=== PATIENT | male | born 1950 | race Caucasian/White ===

== ENCOUNTER 2017-04-12 22:03 | Emergency (ER) | payer OTHER ==
[~2017-04-12] VITALS: Ht 185.4 cm; Wt 92.0 kg
[2017-04-12 22:03] VITALS: BP 132/78; PULSE 83; RESP 16; TEMP 98.3; O2SAT 98
[~2017-04-12 22:03] MED LIST: AMBI5TAB PO; BLOOKIT XX; FLUO60TA OR; GABA300C3 PO; GLUCTAB OR; LISI10; LORA0.5T PO; NAPR250UDC PO; PRAZ5 PO; ROPI2TAB23 PO; TRAM50 PO; ZOCO40TA PO
[2017-04-12] MEDS ORDERED: AMBI10TA PO (22:46)
[2017-04-12] MEDS ORDERED: GABA300C5 PO (22:46)
[2017-04-12] MEDS ORDERED: GLIP10TA6 PO (22:46)
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
[2017-04-12] MEDS ORDERED: ACETAMINOPHEN/HYDROcodone 325 MG/5 MG TAB PO ONE (23:00)
--- NOTE | 2017-04-12 23:43 | RADRPT ---
EXAM DATE/TIME: 04/12/2017 23:19 [facility] COMPARISON: No previous studies available for comparison. INDICATIONS : Fell hitting left side of head. RADIATION DOSE: 41.51 CTDIvol (mGy) MEDICAL HISTORY : Cardiovascular disease. Diabetes mellitus type 2. SURGICAL HISTORY : Pacemaker. ENCOUNTER: Initial ACUITY: 1 day PAIN SCALE: 5/10 LOCATION: Left cranial TECHNIQUE: Multiple contiguous axial images were obtained of the head. Using automated exposure control and adj ustment of the mA and/or kV according to patient size, radiation dose was kept as low as reasonably a chievable to obtain optimal diagnostic quality images. DICOM format image data is available electro nically for review and comparison. FINDINGS: CEREBRUM: The ventricles are normal for age. No evidence of midline shift, mass lesion, hemorrhage or acute in farction. No extra-axial fluid collections are seen. POSTERIOR FOSSA: The cerebellum and brainstem are intact. The 4th ventricle is midline. The cerebellopontine angle i s unremarkable. EXTRACRANIAL: The visualized portion of the orbits is intact. Left-sided scalp laceration. SKULL: The calvaria is intact. No evidence of skull fracture. CONCLUSION: 1. No acute intracranial abnormalities. Left-sided scalp laceration. Rey Vasquez MD on April 12, 2017 at 23:40 Board Certified Radiologist. This report was verified electronically.
--- NOTE | 2017-04-12 23:52 | RADRPT ---
EXAM DATE/TIME: 04/12/2017 23:19 [facility] COMPARISON: No previous studies available for comparison. INDICATIONS : Fell hitting left side of face. RADIATION DOSE: 45.87 CTDIvol (mGy) MEDICAL HISTORY : Cardiovascular disease. Diabetes mellitus type 2. SURGICAL HISTORY : Pacemaker. ENCOUNTER: Initial ACUITY: 1 day PAIN SCORE: 5/10 LOCATION: Left facial TECHNIQUE: Volumetric scanning of the facial bones was performed. Using automated exposure control and adjustme nt of the mA and/or kV according to patient size, radiation dose was kept as low as reasonably achiev able to obtain optimal diagnostic quality images. DICOM format image data is available electronicPryv y for review and comparison. FINDINGS: ORBITS: The orbital and infraorbital osseous structures are intact. The retroconal structures have a normal configuration. No radiopaque foreign bodies are seen. NASAL BONE: The nasal bone and maxillary spine are intact ZYGOMATIC ARCHES: Symmetric without evidence of fracture. SINUSES: The maxillary, ethmoid and frontal sinuses are intact. No air-fluid levels seen. NASAL CAVITY: The nasal septum is intact and midline. The lacrimal ducts are intact. SOFT TISSUES: No radiopaque foreign bodies seen. No soft-tissue swelling is seen. INTRACRANIAL: No intracranial air seen. CRIBIFORM PLATE: Grossly intact. CONCLUSION: 1. No acute facial bone fractures. Rey Vasquez MD on April 12, 2017 at 23:42 Board Certified Radiologist. This report was verified electronically.
--- NOTE | 2017-04-13 00:15 | PD ---
Data Data Last Documented VS Vital Signs Date Time Temp Pulse Resp B/P (MAP) Pulse Ox O2 Delivery O2 Flow Rate FiO2 04/13/17 00:25 04/12/17 22:41 99 Room Air 04/12/17 22:03 98.[address] Brain W/O Iv Contrast(Rout) (04/12/17 22:38) Ct Facial Bones W/O Iv Cont (04/12/17 22:38) Acetamin-Hydrocod 325-5 Mg ([place] 5-325 (04/12/17 23:00) [facility] Medical Record Reviewed: Yes Supervised Visit with NITA: No Interpretation(s) Last Impressions Maxillofacial CT 04/12/172237 Signed Impressions: Service Date/Time: Wednesday, April 12, 2017 23:19 - CONCLUSION: 1. No acute facial bone fractures. Rey Vasquez MD Head CT 04/12/172237 Signed Impressions: Service Date/Time: Wednesday, April 12, 2017 23:19 - CONCLUSION: 1. No acute intracranial abnormalities. Left-sided scalp laceration. Rey Vasquez MD Narrative Course During the course of the patients emergency department visit, the patients history, examination, and differential diagnosis were reviewed with the patient. The patient had IV access obtained and blood work sent for analysis. The patient's case was checked out to me by Geoff, the physician metal moulder's assistant, at the conclusion of his shift. Please see his complete history and physical. The patient has pending CT scans. The patient was initially provided hydrocodone for pain. Radiology studies were reviewed and remarkable for a CT scan of the head that shows no acute intracranial abnormality, left sided scalp laceration. CT scan of the facial bones shows no acute facial bone fracture. The patient's scalp wound is obscured related to dry blood. The patient's wound will be cleaned and reassessed for any need of rod. After the wound was cleaned, the patient had no evidence of significant scalp laceration requiring further management. The patient is resting comfortably and feels better, is alert and in no distress. The patients results and examination findings were discussed with the patient. The repeat examination is unremarkable and benign. The history, exam, diagnostic testing, and current condition do not suggest any significant pathology to warrant further testing, continued ED treatment, admission, or surgical evaluation at this point. The vital signs have been stable. The patient does not have uncontrollable pain, intractable vomiting, or other significant symptoms. The patient's condition is stable and appropriate for discharge. The patient will pursue further outpatient evaluation with a primary care physician or other designated or consulting physician as indicated in the discharge instructions. The patient expressed understanding and was agreeable with this plan. Diagnosis Primary Impression: Head injury Qualified Codes: S09.90XA - Unspecified injury of head, initial encounter Referrals: Primary Care Physician 2 days Patient Instructions: General Instructions, Head Injury (ED) Disposition: 01 DISCHARGE HOME Condition: Stable Annia Torres MD Apr 13, 2017 00:15
== END 2017-04-13 00:31 | disposition home or self-care (01) ==
LOC: NEPC 22:03
DX: S09.90XA Unspecified injury of head, initial encounter (principal); S00.01XA Abrasion of scalp, initial encounter; S50.812A Abrasion of left forearm, initial encounter; R11.0 Nausea; E11.9 Type 2 diabetes mellitus without complications; Z72.0 Tobacco use; Z86.59 Personal history of other mental and behavioral disorders; Z79.84 Long term (current) use of oral hypoglycemic drugs; W01.198A Fall on same level from slipping, tripping and stumbling with subsequent striking against other object, initial encounter; Y92.89 Other specified places as the place of occurrence of the external cause
CPT/HCPCS: 70450; 70486; 99285

== ENCOUNTER 2017-11-09 13:08 | Observation (INO) | payer OTHER ==
[~2017-11-09] VITALS: Ht 180.3 cm; Wt 90.5 kg
[~2017-11-09 13:08] MED LIST changes: +AMBI10TA PO; -AMBI5TAB PO; -BLOOKIT XX; -FLUO60TA OR; -GABA300C3 PO; +GABA300C5 PO; +GLIP10TA6 PO; -GLUCTAB OR; -LISI10; -LORA0.5T PO; -NAPR250UDC PO; -PRAZ5 PO; -ROPI2TAB23 PO; -TRAM50 PO; -ZOCO40TA PO
[2017-11-09 13:31] VITALS: BP 134/66; PULSE 84; RESP 19; TEMP 98.3; O2SAT 96
[2017-11-09 13:47] VITALS: BP 147/70; PULSE 94; RESP 18; O2SAT 96
--- NOTE | 2017-11-09 13:52 | PD ---
HPI Chief Complaint: Pain: Acute or Chronic Time Seen by Provider: 13:42 Travel History International Travel<30 days: No Contact w/Intl Traveler<30days: No Traveled to known affect area: No History of Present Illness HPI This is a 67-year-old male with history of diabetes who presents for evaluation of chest pain. Symptoms started 2 days ago when he was lying down in bed. He reports that he has a sharp right-sided chest pain which lasted for about 5 minutes. Since then he has had persistent sore type of chest pain with no obvious aggravating or alleviating factors. He denies any shortness of breath, cough or congestion, nausea or vomiting, diaphoresis, abdominal pain, weakness, recent travel recent surgery, lower extremity edema. He reports a history of diabetes, pacemaker placement 15 years ago. Per chart review he had a normal cardiac catheterization [facility] in 2009. He has not had any stress testing since then. His primary care physician is at the [facility]. He has no other complaints. 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) Social History Alcohol Use: Yes Tobacco Use: No Substance Use: No Allergies-Medications (Allergen,Severity, Reaction): Coded Allergies: No Known Allergies (Verified Adverse Reaction, Unknown, 11/09/17) Reported Meds & Prescriptions Reported Meds & Active Scripts Active Reported Glipizide 10 Mg Tab 10 Mg PO DAILY Take 30 minutes before a meal Gabapentin 300 Mg Cap 300 Mg PO TID Ambien (Zolpidem Tartrate) 10 Mg Tab 10 Mg PO HS PRN Review of Systems Except as stated in HPI: all other systems reviewed are Neg Physical Exam Narrative GENERAL: Well-developed well-nourished male in no acute distress SKIN: Warm and dry. HEAD: Atraumatic. Normocephalic. EYES: Pupils equal and round. No scleral icterus. No injection or drainage. ENT: No nasal bleeding or discharge. Mucous membranes pink and moist. NECK: Trachea midline. No JVD. CARDIOVASCULAR: Regular rate and rhythm. No murmur appreciated. RESPIRATORY: No accessory muscle use. Clear to auscultation. Breath sounds equal bilaterally. GASTROINTESTINAL: Abdomen soft, non-tender, nondistended. Hepatic and splenic margins not palpable. MUSCULOSKELETAL: No obvious deformities. No clubbing. No cyanosis. No edema. Pacemaker noted left upper chest. NEUROLOGICAL: Awake and alert. No obvious cranial nerve deficits. Motor grossly within normal limits. Normal speech. PSYCHIATRIC: Appropriate mood and affect; insight and judgment normal. Data Data Last Documented VS Vital Signs Date Time Temp Pulse Resp B/P (MAP) Pulse Ox O2 Delivery O2 Flow Rate FiO2 11/09/17 13:47 94 18 147/70 (95) 96 Room Air 11/09/17 13:31 98.3 Orders Orders Electrocardiogram (11/09/17 13:47) Basic Metabolic Panel (Bmp) (11/09/17 13:47) Ckmb (Isoenzyme) Profile (11/09/17 13:47) Complete Blood Count With Diff (11/09/17 13:47) Magnesium (Mg) (11/09/17 13:47) Prothrombin Time / Inr (Pt) (11/09/17 13:47) Act Partial Throm Time (Ptt) (11/09/17 13:47) Troponin I (11/09/17 13:47) Ecg Monitoring (11/09/17 13:47) Bilateral Bp Monitoring (11/09/17 13:47) Iv Access Insert/Monitor (11/09/17 13:47) Oximetry (11/09/17 13:47) Oxygen Administration (11/09/17 13:47) Aspirin Chew (Aspirin Chew) (11/09/17 14:00) Sodium Chloride 0.9% Flush (Ns Flush) (11/09/17 14:00) Chest, Pa & Lat (11/09/17 13:47) Sodium Chlor 0.9% 1000 Ml Inj (Ns 1000 M (11/09/17 14:20) Insulin Human Regular Inj (Novolin R Inj (11/09/17 14:30) Admit Order (Ed Use Only) (11/09/17 14:33) Labs Laboratory Tests Test 11/09/17 13:35 White Blood Count 6.8 TH/MM3 Red Blood Count 4.57 MIL/MM3 Hemoglobin 14.6 GM/DL Hematocrit 43.3 % Mean Corpuscular Volume 94.7 FL Mean Corpuscular Hemoglobin 32.0 PG Mean Corpuscular Hemoglobin Concent 33.8 % Red Cell Distribution Width 13.6 % Platelet Count 168 TH/MM3 Mean Platelet Volume 9.4 FL Neutrophils (%) (Auto) 72.6 % Lymphocytes (%) (Auto) 17.4 % Monocytes (%) (Auto) 5.9 % Eosinophils (%) (Auto) 3.5 % Basophils (%) (Auto) 0.6 % Neutrophils # (Auto) 4.9 TH/MM3 Lymphocytes # (Auto) 1.2 TH/MM3 Monocytes # (Auto) 0.4 TH/MM3 Eosinophils # (Auto) 0.2 TH/MM3 Basophils # (Auto) 0.0 TH/MM3 CBC Comment DIFF FINAL Differential Comment Prothrombin Time 10.4 SEC Prothromb Time International Ratio 1.0 RATIO Activated Partial Thromboplast Time 25.9 SEC Blood Urea Nitrogen 21 MG/DL Creatinine 1.42 MG/DL Random Glucose 357 MG/DL Calcium Level 8.5 MG/DL Magnesium Level 2.0 MG/DL Sodium Level 140 MEQ/L Potassium Level 4.4 MEQ/L Chloride Level 103 MEQ/L Carbon Dioxide Level 29.9 MEQ/L Anion Gap 7 MEQ/L Estimat Glomerular Filtration Rate 49 ML/MIN Total Creatine Kinase 74 U/L Troponin I LESS THAN 0.02 NG/ML [facility] Medical Decision Making Medical Screen Exam Complete: Yes Emergency Medical Condition: Yes Medical Record Reviewed: Yes Differential Diagnosis Acute coronary syndrome, angina, costochondritis, pericarditis, myocarditis, pneumothorax, hemothorax, pneumonia, aortic dissection, pulmonary embolism Narrative Course The patient was placed on ECG monitoring pulse oximetry. A 12-lead EKG was obtained revealing electronically paced rhythm. Lab work, chest x-ray have been ordered. The patient will be given a full dose aspirin. CBC is unremarkable. BMP reveals a GFR 49, glucose of 357, 1 L IV fluid/5 unit insulin bolus will be initiated. Initial set of cardiac enzymes are negative. Chest x-ray is normal. At this point time the plan would be to admit the patient into the chest pain center for serial cardiac enzymes and rule out purposes. He is agreeable. Diagnosis Primary Impression: Atypical chest pain Admitting Information Admitting Physician Requests: Jah Jolley Nov 09, 2017 13:52
[2017-11-09] MEDS ORDERED: ASPIRIN 81 MG CHEW TAB PO ONE (14:00)
[2017-11-09] MEDS ORDERED: SODIUM CHLORIDE 0.9% FLUSH 10 ML FLUSH IVF PRN (14:00)
[2017-11-09 14:03] LABS: AUTOMATED NEUTROPHIL # 4.9 TH/MM3 (1.8-7.7); BASOPHIL % 0.6 % (0.0-2.0); EOSINOPHIL # 0.2 TH/MM3 (0-0.4); EOSINOPHIL % 3.5 % (0.0-4.0); HEMATOCRIT 43.3 % (39.0-51.0); HEMOGLOBIN 14.6 GM/DL (13.0-17.0); LYMPH % 17.4 % (9.0-44.0); LYMPHOCYTE # 1.2 TH/MM3 (1.0-4.8); MEAN CELL VOLUME 94.7 FL (80.0-100.0); MEAN CORPUSCULAR HGB CONC 33.8 % (32.0-36.0); MEAN PLATELET VOLUME 9.4 FL (7.0-11.0); MONO % 5.9 % (0.0-8.0); MONOCYTE # 0.4 TH/MM3 (0-0.9); NEUT % 72.6 % (16.0-70.0); PLATELET COUNT 168 TH/MM3 (150-450); RED BLOOD COUNT 4.57 MIL/MM3 (4.50-5.90); RED CELL DISTRIBUTION WIDTH 13.6 % (11.6-17.2); WHITE BLOOD COUNT 6.8 TH/MM3 (4.0-11.0)
[2017-11-09 14:11] LABS: PROTHROMBIN TIME - PATIENT 10.4 SEC (9.8-11.6)
--- NOTE | 2017-11-09 14:18 | RADRPT ---
EXAM DATE/TIME: 11/09/2017 14:05 [facility] COMPARISON: No previous studies available for comparison. INDICATIONS : Chest pain. MEDICAL HISTORY : Cardiovascular disease. Diabetes mellitus type II. SURGICAL HISTORY : Pacemaker. ENCOUNTER: Initial ACUITY: 2 days PAIN SCORE: 8/10 LOCATION: Left chest FINDINGS: PA and lateral views of the chest demonstrate the lungs to be symmetrically aerated without evidence of mass, infiltrate or effusion. The cardiomediastinal contours are unremarkable. Osseous structure s are intact. CONCLUSION: Normal examination. Left subclavian bipolar pacer in good position Stephen Cantu MD on November 09, 2017 at 14:15 Board Certified Radiologist. This report was verified electronically.
[2017-11-09 14:19] LABS: BICARBONATE 29.9 MEQ/L (21.0-32.0); BLOOD UREA NITROGEN 21 MG/DL (7-18); CALCIUM 8.5 MG/DL (8.5-10.1); CHLORIDE 103 MEQ/L (98-107); CREATININE 1.42 MG/DL (0.60-1.30); GLOMERULAR FILTRATION RATE 49 ML/MIN (>89); GLUCOSE,RANDOM 357 MG/DL (74-106); SODIUM (NA) 140 MEQ/L (136-145)
[2017-11-09] MEDS ORDERED: SODIUM CHLOR 0.9% 1000 ML INJ 1,000 ML IV SCH (14:20)
[2017-11-09 14:24] LABS: TROPONIN I LESS THAN 0.02 NG/ML (0.02-0.05)
[2017-11-09] MEDS ORDERED: INSULIN HUMAN REGULAR 1,000 UNITS/10 ML VIAL IV PUSH ONE (14:30)
[2017-11-09] MEDS ORDERED: MELA5 PO (15:19)
[2017-11-09] MEDS ORDERED: BUPR300T PO (15:19)
[2017-11-09] MEDS ORDERED: VIAG50TA PO (15:19)
[2017-11-09] MEDS ORDERED: TERA2CAP3 PO (15:19)
[2017-11-09] MEDS ORDERED: DULO1CAP3 PO (15:19)
[2017-11-09] MEDS ORDERED: VENTAER INH (15:19)
--- NOTE | 2017-11-09 15:55 | PD.AMA ---
Against Medical Advice Note Diagnosis: (1) Chest pain (2) Renal insufficiency (3) DM (diabetes mellitus) Discharge Disposition: Against Medical Advice AMA Statement Patient Norbert Preston has decided to leave the hospital against medical advice. This patient has the capacity to refuse care and understands the risks of leaving, including permanent disability and/or , and has had an opportunity to ask questions about his condition. The patient has been informed that he may return for care at any time, and follow up has been arranged/ advised. Etienne Lin Nov 09, 2017 15:55
--- NOTE | 2017-11-09 16:08 | HHI.HP ---
HPI Primary Care Physician Unknown Chief Complaint Chest pain History of Present Illness This is a 67-year-old male that presents to ED via private vehicle after being evaluated at the [facility] to be further evaluated for chest discomfort. States that he developed discomfort in the right side of his chest 2 nights ago while going to bed. It was a stabbing discomfort that lasted about 5 minutes but since then that has been a soreness to the same area. Pain level 2 out of 10. Nothing really seems to worsen or improve it. Has no associated shortness of breath, nausea, or diaphoresis. Patient states he does not want to stay. Patient states "if I thought it was my heart, I would stay." Upon reviewing records patient had a stress test at this facility 2009 that was abnormal at the heart catheterization performed by Dr. Kay that revealed normal coronary arteries. He also has a pacemaker that was placed 1998 in [facility] and replaced in 2008 through the [facility]. He follows a acute specialist at the [facility] on an annual basis. Review of Systems Diabetes, hyperlipidemia, pacemaker, neuropathy. Denies hypertension and CAD. Past Family Social History Allergies: Coded Allergies: No Known Allergies (Verified Adverse Reaction, Unknown, 11/09/17) Past Medical History Diabetes, hyperlipidemia, pacemaker, neuropathy. Denies hypertension and CAD. Past Surgical History Cardiac catheterization without intervention in 2009. Pacemaker. Reported Medications Reported Meds & Active Scripts Active Reported Bupropion HCl ER 24 HR (Bupropion HCl) 300 Mg Tab 300 Mg PO DAILY Duloxetine DR (Duloxetine HCl) 60 Mg Capdr 60 Mg PO DAILY Viagra (Sildenafil Citrate) 50 Mg Tab 50 Mg PO DAILY PRN Terazosin (Terazosin HCl) 2 Mg Cap 2 Mg PO HS Glipizide 10 Mg Tab 10 Mg PO DAILY Take 30 minutes before a meal Gabapentin 300 Mg Cap 300 Mg PO TID Ambien (Zolpidem Tartrate) 10 Mg Tab 10 Mg PO HS PRN Active Ordered Medications Current Medications Medications (Trade) Dose Ordered Sig/Renetta Route Start Time Stop Time Status Last Admin (NS Flush) 2 ml UNSCH PRN IVF 11/09/17 14:00 (Wellbutrin Sr) 150 mg BID PO 11/09/17 21:00 (Cymbalta Dr) 60 mg DAILY PO 11/10/17 09:00 (Neurontin) 300 mg TID PO 11/09/17 18:00 (Glucotrol) 10 mg DAILY PO 11/10/17 09:00 (Hytrin) 2 mg HS PO 11/09/17 21:00 (Ambien) 10 mg HS PRN PO 11/09/17 21:00 Family History Denies family history of CAD. Social History Quit smoking 8 years ago but prior that he smoked on and off for 40 years but will not do any more further detail to quantity. Has occasional alcohol. Denies illicit drug use. Physical Exam Vital Signs Vital Signs Date Time Temp Pulse Resp B/P (MAP) Pulse Ox O2 Delivery O2 Flow Rate FiO2 11/09/17 13:47 94 18 147/70 (95) 96 Room Air 11/09/17 13:45 80 18 11/09/17 13:31 98.3 84 19 134/66 (88) 96 Laboratory Laboratory Tests Test 11/09/17 13:35 White Blood Count 6.8 Red Blood Count 4.57 Hemoglobin 14.6 Hematocrit 43.3 Mean Corpuscular Volume 94.7 Mean Corpuscular Hemoglobin 32.0 Mean Corpuscular Hemoglobin Concent 33.8 Red Cell Distribution Width 13.6 Platelet Count 168 Mean Platelet Volume 9.4 Neutrophils (%) (Auto) 72.6 Lymphocytes (%) (Auto) 17.4 Monocytes (%) (Auto) 5.9 Eosinophils (%) (Auto) 3.5 Basophils (%) (Auto) 0.6 Neutrophils # (Auto) 4.9 Lymphocytes # (Auto) 1.2 Monocytes # (Auto) 0.4 Eosinophils # (Auto) 0.2 Basophils # (Auto) 0.0 CBC Comment DIFF FINAL Differential Comment Prothrombin Time 10.4 Prothromb Time International Ratio 1.0 Activated Partial Thromboplast Time 25.9 Blood Urea Nitrogen 21 Creatinine 1.42 Random Glucose 357 Calcium Level 8.5 Magnesium Level 2.0 Sodium Level 140 Potassium Level 4.4 Chloride Level 103 Carbon Dioxide Level 29.9 Anion Gap 7 Estimat Glomerular Filtration Rate 49 Total Creatine Kinase 74 Troponin I LESS THAN 0.02 Result Diagram: 11/09/17 1335 11/09/17 1335 Imaging Last 48 hours Impressions Chest X-Ray 11/09/17 1347 Signed Impressions: Service Date/Time: October 14:05 - CONCLUSION: Normal examination. Left subclavian bipolar pacer in good position Stephen Cantu MD Course EKG: Initial EKG reveals ventricular pacing. Caprini VTE Risk Assessment Caprini VTE Risk Assessment: Mod/High Risk (score >= 2) Caprini Risk Assessment Model Point Value = 1 Point Value = 2 Point Value = 3 Point Value = 5 Age 41-60 Minor surgery BMI > 25 kg/m2 Swollen legs Varicose veins or History of unexplained or recurrent spontaneous Oral contraceptives or hormone replacement Sepsis (< 1 month) Serious lung disease, including pneumonia (< 1 month) Abnormal pulmonary function Acute myocardial infarction Congestive heart failure (< 1 month) History of inflammatory bowel disease Medical patient at bed rest Age 61-74 Arthroscopic surgery Major open surgery (> 45 min) Laparoscopic surgery (> 45 min) Malignancy Confined to bed (> 72 hours) Immobilizing plaster cast Central venous access Age >= 75 History of VTE Family history of VTE Factor V Leiden Prothrombin [id number] Lupus anticoagulant Anticardiolipin antibodies Elevated serum homocysteine Heparin-induced thrombocytopenia Other congenital or acquired thrombophilia Stroke (< 1 month) Elective arthroplasty Hip, pelvis, or leg fracture Acute spinal cord injury (< 1 month) Prophylaxis Regimen Total Risk Factor Score Risk Level Prophylaxis Regimen 0-1 Low Early ambulation 2 Moderate Order ONE of the following: *Sequential Compression Device (SCD) *Heparin 5000 units SQ BID 3-4 Higher Order ONE of the following medications: *Heparin 5000 units SQ TID *Enoxaparin/Lovenox 40 mg SQ daily (WT < 150 kg, CrCl > 30 mL/min) *Enoxaparin/Lovenox 30 mg SQ daily (WT < 150 kg, CrCl > 10-29 mL/min) *Enoxaparin/Lovenox 30 mg SQ BID (WT < 150 kg, CrCl > 30 mL/min) AND/OR *Sequential Compression Device (SCD) 5 or more Highest Order ONE of the following medications: *Heparin 5000 units SQ TID (Preferred with Epidurals) *Enoxaparin/Lovenox 40 mg SQ daily (WT < 150 kg, CrCl > 30 mL/min) *Enoxaparin/Lovenox 30 mg SQ daily (WT < 150 kg, CrCl > 10-29 mL/min) *Enoxaparin/Lovenox 30 mg SQ BID (WT < 150 kg, CrCl > 30 mL/min) AND *Sequential Compression Device (SCD) Assessment and Plan Assessment and Plan * Chest pain: His symptoms do appear atypical but he has risks for heart disease with his past history of tobacco abuse as well as history of hyperlipidemia and diabetes. It was explained to him that he will be seen by the acute specialist in the morning and potentially have stress testing. Patient does not want to have any further testing and wishes to leave at this time. I explained to the patient that if he left it would be AGAINST MEDICAL ADVICE. He understands this. I explained the risks of leaving AGAINST MEDICAL ADVICE which could even include . Patient still wishes to leave AGAINST MEDICAL ADVICE. I made him aware that even though he is leaving AGAINST MEDICAL ADVICE if he changes his mind he should certainly return. Regardless he should follow- up with his medical team at the [facility] including cardiology. * AGAINST MEDICAL ADVICE * Diabetes: Poorly controlled. He is aware of this. He needs to work on controlling his diabetes with his medical team and following a proper diabetic diet. * Hyperlipidemia: Continue medication. Etienne Lin Nov 09, 2017 16:08
[2017-11-09] MEDS ORDERED: GABAPENTIN 300 MG CAP PO SCH (18:00)
[2017-11-09] MEDS ORDERED: buPROPion HCL 150 MG SUSTAINED RELEASE TAB PO SCH (21:00)
[2017-11-09] MEDS ORDERED: ZOLPIDEM TARTRATE 10 MG TAB PO PRN (21:00)
[2017-11-09] MEDS ORDERED: TERAZOSIN HCL 1 MG CAP PO SCH (21:00)
[2017-11-10] MEDS ORDERED: DULoxetine HCl DR 60 MG CAP PO SCH (09:00)
[2017-11-10] MEDS ORDERED: glipiZIDE 10 MG TAB PO SCH (09:00)
--- NOTE | 2017-11-10 13:43 | EKG ---
Date Performed: 11/09/2017 Time Performed: 13:51:13 PTAGE: 67 years EKG: ELECTRONIC VENTRICULAR PACEMAKER ABNORMAL RHYTHM ECG PREVIOUS TRACING : 03/29/2012 19.54 Since the previous tracing, no significant change noted DOCTOR: Hugo Melchor Interpretating Date/Time 11/10/2017 13:41:57
== END 2017-11-09 16:18 | disposition home or self-care (01) ==
LOC: NEPC 13:08 → NEDA 14:34 → NEPHCDU 15:31
DX: R07.89 Other chest pain (principal); N28.9 Disorder of kidney and ureter, unspecified; E11.40 Type 2 diabetes mellitus with diabetic neuropathy, unspecified; E78.5 Hyperlipidemia, unspecified; R94.31 Abnormal electrocardiogram [ECG] [EKG]; Z79.84 Long term (current) use of oral hypoglycemic drugs; Z87.891 Personal history of nicotine dependence; Z95.0 Presence of cardiac pacemaker
CPT/HCPCS: 71046; 80048; 82550; 83735; 84484; 85025; 85610; 85730; 93005; 99285; G0378; J1815; J7030